=== PATIENT | male | born 1965 | race Hispanic/Latino ===

== ENCOUNTER 2021-08-10 10:23 | Emergency (ER) | payer OTHER ==
[~2021-08-10] VITALS: Ht 172.7 cm; Wt 108.0 kg
[~2021-08-10 10:23] MED LIST: CYCLOBENZAPRINE10 MG PO
[2021-08-10] MEDS ORDERED: KETOROLAC TROMETHAMINE 60 MG/2 ML VIAL IM ONE (11:45)
[2021-08-10 12:18] VITALS: BP 149/68
== END 2021-08-10 12:20 | disposition home or self-care (01) ==
LOC: ER 10:25
DX: M54.2 Cervicalgia (principal); M62.838 Other muscle spasm; M54.9 Dorsalgia, unspecified; G89.29 Other chronic pain; I10 Essential (primary) hypertension; E11.9 Type 2 diabetes mellitus without complications; E78.5 Hyperlipidemia, unspecified
CPT/HCPCS: 99284; J1885